=== PATIENT | female | born 1980 | race Caucasian/White ===

== ENCOUNTER 2017-08-26 21:43 | Emergency (ER) | payer MEDICAID ==
[2017-08-26] MEDS ORDERED: ONDANSETRON HCL/PF 2 MG/ML VIAL IV ONE (22:04)
[2017-08-26] MEDS ORDERED: fentaNYL CITRATE/PF 50 MCG/ML AMPUL IV ONE ×2 (22:04→23:03)
[2017-08-26 22:05] LABS: Hematocrit 42.6 % (37.0-47.0); Hemoglobin 14.5 gm/dL (12.5-16.0); Neutrophil # 7.9 K/mm3 (1.3-6.0); Neutrophil % 62.5 % (42-75.0); Platelet Count 462 K/mm3 (150-450); Red Blood Count 4.39 M/mm3 (4.2-5.4); Red Cell Distribution Width 12.8 % (11.5-14.0); White Blood Count 12.6 K/mm3 (4.0-10.5)
[2017-08-26] MEDS ORDERED: NORMAL SALINE 1,000 ML IV ONE (22:06)
[2017-08-26 22:10] LABS: Albumin * 4.2 gm/dl (3.4-5.0); Anion Gap 14.5 mmol/L (6.8-13.8); Bilirubin, Total 0.2 mg/dL (0.0-1.1); Ca. Corrected For Albumin 8.2 mg/dL (8.4-10.2); Calcium * 8.7 mg/dL (7.9-10.9); Carbon Dioxide 25.1 mmol/L (24-32.6); Potassium 3.6 mmol/L (3.4-4.6)
[2017-08-26 22:19] VITALS: BP 151/101
[2017-08-26 22:19] LABS: Urine Bilirubin Negative (NEGATIVE); Urine Blood 50 /ul (NEGATIVE); Urine Ketone Negative (NEGATIVE); Urine Nitrite Negative (NEGATIVE); Urine Protein 100 mg/dL (NEGATIVE); Urine Specific Gravity 1.015 SP.GR. (1.005-1.010); Urine Urobilinogen Normal (NORMAL); Urine pH 6.5 pH (5.0-7.0)
[2017-08-26 22:29] LABS: Urine Amorphous Sediment TRACE (NONE-FEW); Urine Appearance Clear; Urine Bacteria TRACE; Urine Color Pale Yellow; Urine Hyaline Cast 0-5 /LPF; Urine RBC None Seen /hpf (0-5); Urine WBC None Seen /hpf (0-5)
[2017-08-26 22:31] LABS: Cocaine Ur Negative (NEGATIVE); Urine Barbiturate Negative (NEGATIVE); Urine Benzodiazepines Negative (NEGATIVE); Urine Opiates Negative (NEGATIVE); Urine PCP Negative (NEGATIVE); Urine THC Negative (NEGATIVE)
[2017-08-26] MEDS ORDERED: fentaNYL CITRATE/PF 50 MCG/ML AMPUL ONE ×2 (22:36→23:03)
[2017-08-26] MEDS ORDERED: ONDANSETRON HCL/PF 2 MG/ML VIAL ONE (22:36)
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
== END 2017-08-26 23:35 | disposition short-term general hospital (02) ==
LOC: ER 21:43
PROC: 0QSJXZZ Reposition Right Fibula, External Approach (ICD-10-PCS; principal; 2017-08-26)
PROC: 0QSGXZZ Reposition Right Tibia, External Approach (ICD-10-PCS; 2017-08-26)
PROC: 0T9B70Z Drainage of Bladder with Drainage Device, Via Natural or Artificial Opening (ICD-10-PCS; 2017-08-26)
DX: S32.402A Unspecified fracture of left acetabulum, initial encounter for closed fracture (principal); S32.9XXA Fracture of unspecified parts of lumbosacral spine and pelvis, initial encounter for closed fracture; S82.841A Displaced bimalleolar fracture of right lower leg, initial encounter for closed fracture; J93.9 Pneumothorax, unspecified; S30.0XXA Contusion of lower back and pelvis, initial encounter; V47.5XXA Car driver injured in collision with fixed or stationary object in traffic accident, initial encounter; Y92.411 Interstate highway as the place of occurrence of the external cause; F10.129 Alcohol abuse with intoxication, unspecified; Y90.8 Blood alcohol level of 240 mg/100 ml or more
CPT/HCPCS: 27810; 36415; 51702; 70450; 71010; 71260; 72125; 73590; 73600; 73610; 74177; 80053; 80307; 81001; 85025; 96374; 96375; 99291; G0390; G0481; J2405